=== PATIENT | male | born 1975 | race Caucasian/White ===

== ENCOUNTER 2023-12-03 21:40 | Emergency (ER) | payer OTHER ==
[~2023-12-03] VITALS: Ht 167.6 cm; Wt 81.6 kg
[2023-12-03 21:49] VITALS: BP 129/87; PULSE 69; RESP 16; TEMP 96.4; O2SAT 97
[2023-12-04] MEDS ORDERED: SULF-58 PO (00:47)
== END 2023-12-04 01:40 | disposition home or self-care (01) ==
LOC: MED 21:40
DX: L02.512 Cutaneous abscess of left hand (principal); Z79.899 Other long term (current) drug therapy
CPT/HCPCS: 26010; 90471; 90715; 99283